=== PATIENT | male | born 1940 | race Caucasian/White ===

== ENCOUNTER 2022-10-03 18:50 | Emergency (ER) | payer MEDICARE, SELFPAY ==
[2022-10-03] VITALS (12 sets, daily range): BP systolic 119–172; BP diastolic 61–85; PULSE 78–120; RESP 16–25; TEMP 36.6–37; O2SAT 90–98
--- NOTE | ~2022-10-03 | XR_ITS ---
Clinical Indication: Allergic reaction, shortness of breath PA and lateral views of the chest: Comparison: None Findings: The lungs are clear, without evidence of focal consolidation or pleural effusion. Probable eventration left hemidiaphragm. Cardiomediastinal silhouette is within normal limits. Bones and soft tissues are unremarkable. Impression: Clear lungs. Eventration versus other elevation of left hemidiaphragm. Reviewed, dictated and finalized at location M. Impression: Clear lungs. Eventration versus other elevation of left hemidiaphragm.
--- NOTE | 2022-10-03 19:19 | ED.GENADULT ---
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 Patient states that approximately 6 PM he had onset of difficulty breathing, itching of skin. Patient denies any other new medications or food exposures. Patient did take Benadryl, 50 mg, just prior to arrival. Patient states he does feel his breathing is improved. Upon arrival to ED patient was requiring 2 to 4 L of oxygen. Patient denies any associated chest pain. Patient is not normally on oxygen. Patient reports he has had a prior allergic reaction to beets. Related Data Home Medications Medication Instructions Recorded Confirmed diltiazem HCl 180 mg 180 mg PO DAILY 08/05/20 capsule,extended release 24 hr mometasone 50 mcg/actuation nasal 2 spray intranasal DAILY 08/05/20 spray (Nasonex) rosuvastatin 10 mg tablet (Crestor) 10 mg PO DAILY 08/05/20 Allergies Allergy/AdvReac Type Severity Reaction Status Date / Time No Known Allergies Allergy Verified 02/06/21 12:57 Review of Systems Review of Systems: All systems reviewed & are unremarkable except as noted in HPI and below PMFSH Family History Family History Mother Breast cancer Social History Social History Alcohol intake: current Substance use: never Substance use type: does not use Exam Narrative: APPEARANCE: Well appearing, no pain, no distress, well-nourished. HEAD: normocephalic, atraumatic. EYES: PERRLA/EOMI, conjunctivae clear. NOSE: Normal no drainage THROAT: Pharynx clear, no exudate. NECK: Supple. No adenopathy, no masses. RESPIRATORY: Airway patent, respirations nonlabored. Clear to auscultation bilaterally, no rales, rhonchi, wheezing. CARDIOVASCULAR: Regular rate and rhythm without murmurs rubs or gallops. ABDOMINAL: Soft, nontender, nondistended, normal bowel sounds MUSCULOSKELETAL: Moves all extremities. Strength/ROM intact, No edema, No calf tenderness. NEURO: Alert. Cranial nerves II through XII intact. Good gait. Good coordination SKIN: Urticarial rash chest neck arms and legs PSYCHIATRIC: Normal affect/mood. Course Course Emergency Course: 82-year-old male presented the ED for evaluation for an allergic reaction to beats. Patient was treated with 50 mg of Benadryl prior to arrival. Patient was treated with another 25 mg of IV Benadryl in addition to famotidine, Solu-Medrol, albuterol nebulized and 0.3 mg of IM epinephrine. Patient was initially on oxygen after arrival to the ED. Patient was treated with nebulizer butyryl and IM epi along with IV Solu-Medrol and IV famotidine. Patient was off of the oxygen for approximately 2.5 hours. Patient had a stable pulse ox with ambulation. Chest x-ray showed no acute cardiopulmonary normality. Patient was updated on the plan for a few days of steroids. Patient was encouraged of close follow-up with his primary care physician. Patient was educated on reasons to return the emergency department. Prior to discharge patient was able to ambulate with a stable pulse ox of 93 to 95%. Vital Signs Vital signs: Vital Signs Temperature 97.9 F 10/03/22 18:55 Pulse Rate 120 H 10/03/22 18:55 Respiratory Rate 24 H 10/03/22 18:55 Blood Pressure 172/70 H 10/03/22 18:55 Pulse Oximetry 90 10/03/22 18:55 Oxygen Delivery Room Air 10/03/22 18:55 Temperature 98.6 F 10/03/22 22:32 Pulse Rate 95 10/03/22 22:32 Respiratory Rate 16 10/03/22 22:32 Blood Pressure 129/80 10/03/22 22:32 Pulse Oximetry 94 10/03/22 22:32 Oxygen Delivery Room Air 10/03/22 19:56 Oxygen Flow Rate 3 10/03/22 19:16 Medical Decision Making Vital Signs Vit
[2022-10-03] MEDS: EPINEPHrine HCL INJ 1 MG/ML AMPUL 0.3 MG IM (19:23)
[2022-10-03] MEDS: diphenhydrAMINE HCl INJ 50 MG/ML VIAL 25 MG IV PUSH (19:26)
[2022-10-03] MEDS: FAMOTIDINE 20 MG/2 ML VIAL IV PUSH (19:29)
[2022-10-03] MEDS: methylPREDNISolone SOD SUCC 125 MG VIAL IV PUSH (19:33)
[2022-10-03] MEDS: ALBUTEROL SULFATE NEB 2.5 MG/3 ML INH 5 MG INHALATION (19:37)
[2022-10-03 19:57] LABS: Basophils Percent Auto 0.3 % (0.2-1.2); Eosinophils Absolute Auto 0.4 K/mm3 (0-0.3); Eosinophils Percent Auto 4.2 % (0-4.4); Hematocrit 46.2 % (42.0-52.0); Hemoglobin 15.4 g/dL (14.0-18.0); Immature Granulocyte Absolute 0.02 K/mm3 (0.00-0.031); Immature Granulocyte Percent A 0.2 % (0-0.5); Lymphocytes Absolute Auto 3.33 K/mm3 (0.9-3.2); Lymphocytes Percent Auto 37.4 % (18.3-44.2); Mean Corpuscular HGB Conc 33.3 g/dl (32-36); Mean Corpuscular Hemoglobin 34.3 pg (26-34); Mean Corpuscular Volume 102.9 fl (80-100); Monocytes Absolute Auto 0.7 K/mm3 (0.1-0.6); Monocytes Percent Auto 7.3 % (2.6-8.5); Neutrophils Absolute Auto 4.5 K/mm3 (1.3-6.7); Neutrophils Percent Auto 50.6 % (45.5-73.1); Platelet Count Result 189 k/mm3 (150-375); Red Blood Count 4.49 M/mm3 (4.6-6.20); Red Cell Distribution Width 12.8 % (11.5-14.5); White Blood Count 8.9 K/mm3 (4.5-10.0)
[2022-10-03 20:14] LABS: Alanine Aminotransferase 25 U/L (6-50); Albumin Level 4.3 g/dL (3.5-5.1); Alkaline Phosphatase 72 U/L (38-126); Anion Gap 8 mmol/L (8-16); Aspartate Amino Transferase 35 U/L (17-59); Bilirubin,Total 1.1 mg/dL (0.2-1.3); Blood Urea Nitrogen 18 mg/dL (9-20); Calcium 8.9 mg/dL (8.4-10.2); Carbon Dioxide 31 mmol/L (22-30); Chloride 96 mmol/L (98-107); Estimated CRCL calculation 55 ml/min; Estimated Glomerular Filt Rate > 60; Glucose 134 mg/dL (65-110); Potassium 3.9 mmol/L (3.4-5.0); Sodium 135 mmol/L (137-145)
== END 2022-10-03 22:33 | disposition home or self-care (01) ==
PROVIDERS: Emergency Provider Emergency Medicine; PCP Internal Medicine
DX: T78.1XXA Other adverse food reactions, not elsewhere classified, initial encounter (principal); L29.9 Pruritus, unspecified; R06.89 Other abnormalities of breathing
CPT/HCPCS: 36415; 71046; 80053; 85025; 94640; 96372; 96374; 96375; 99284; J0171; J1200; J2930